=== PATIENT | male | born 1955 | race Caucasian/White ===

== ENCOUNTER 2016-09-21 11:45 | Day surgery (SDC) | payer MEDICARE, OTHER ==
[2016-09-21] VITALS (8 sets, daily range): BP systolic 115–171; BP diastolic 62–123; PULSE 80–103; TEMP 97.4
[~2016-09-21] VITALS: Ht 152.4 cm; Wt 113.6 kg
[2016-09-21 12:47] LABS: HEMATOCRIT 39.7 % (42.0-52.0); HEMOGLOBIN 13.2 g/dl (13.5-18.0); MEAN CELL VOLUME 86 fl (80.0-100.0); MEAN CORPUSCULAR HEMOGLOBIN 29 pg (27.0-31.0); MEAN CORPUSCULAR HGB CONC 33 g/dl (33.0-37.0); MEAN PLATELET VOLUME 10.9 fl (7.4-10.4); PLATELET COUNT 261 K/mm3 (130-400); RED BLOOD COUNT 4.61 M/mm3 (4.20-5.60); REDCELL DISTRIBUTION WIDTH-CV 12.6 % (11.5-14.5); WHITE BLOOD COUNT 10.9 K/mm3 (4.8-10.8)
[2016-09-21 12:55] LABS: CALCIUM 9.9 mg/dL (8.4-10.2); CREATININE, serum 0.66 mg/dL (0.66-1.25); POTASSIUM 4.3 mmol/L (3.4-5.0)
[2016-09-21 13:04] LABS: INR 1.1 (0.8-3.0)
[2016-09-21] MEDS ORDERED: PRILOSEC 20MG20 MG PO (13:20)
[2016-09-21] MEDS ORDERED: NEURONTIN300 MG/CAP PO (13:22)
[2016-09-21] MEDS ORDERED: NOVOLOG MIX 70/10 ML SQ ×2 (13:23→13:25)
[2016-09-21] MEDS ORDERED: INSULIN 70/3100 U/ML SQ (13:24)
[2016-09-21] MEDS ORDERED: ACCUPRIL10 M1 PO (13:26)
[2016-09-21] MEDS ORDERED: KLOR-CON 1010 MEQ PO (13:26)
[2016-09-21] MEDS ORDERED: GLUCOPHAGE500 MG/TAB PO (13:27)
[2016-09-21] MEDS ORDERED: ZOCOR 10MG10 MG PO (13:31)
[2016-09-21] MEDS ORDERED: MOBIC15 MG PO (13:34)
[2016-09-21] MEDS ORDERED: LASIX 40MG TABL40 MG PO (13:38)
[2016-09-21] MEDS ORDERED: LASIX 20MG TABL20 MG PO (13:40)
[2016-09-21] MEDS ORDERED: FLEXERIL 1010 MG/TAB PO (13:50)
[2016-09-21] MEDS ORDERED: PERCOCET 325 MG1 TA2 PO (13:51)
[2016-09-21] MEDS ORDERED: [UNRECOGNIZED DRUG - OTHER] TP (13:55)
[2016-09-21] MEDS ORDERED: LAC-HYDRIN121 TP (13:56)
[2016-09-21] MEDS ORDERED: NYSTATIN OR100 MU/ML TOP (14:02)
== END 2016-09-21 20:11 | disposition home or self-care (01) ==
LOC: EUO 11:45 → COL.RAD 12:30 → EUO 20:11
PROVIDERS: Internal Medicine Interventional Cardiology
DX: R07.89 Other chest pain (principal); R94.39 Abnormal result of other cardiovascular function study; R60.0 Localized edema; R06.02 Shortness of breath; M79.604 Pain in right leg; M79.605 Pain in left leg; E66.9 Obesity, unspecified
CPT/HCPCS: C1887; C1894; J2250; J3010; Q9967